=== PATIENT | female | born 1975 | race African-American/Black ===

== ENCOUNTER 2018-10-08 20:44 | Emergency (ER) | payer BC, OTHER ==
[2018-10-08 20:55] VITALS: TEMP 98; BMI 28.2
--- NOTE | 2018-10-08 21:55 | PDOC ---
History of Present Illness - General Chief Complaint: Pain Stated Complaint: PAIN,DIARRHEA Time Seen by Provider: 10/08/18 21:52 History Source: Patient Exam Limitations: No Limitations - History of Present Illness Initial Comments: 10/08/18 22:14 43 year old woman with no past medical history who presents with 10 episodes of nonbloody watery diarrhea since this AM and w/ stabbing 10/10 LUQ pain radiating to the L back since 1500 today. She took zantac for symptoms without relief. The symptoms are associated with some nausea, but denies dysuria, hematuria, fevers, headaches, recent illness, coughing, congestion. She denies any prior abdominal surgeries. She has no other complaints at bedside. No rashes noted. Past History - Past Medical History Allergies/Adverse Reactions: Allergies Allergy/AdvReac Type Severity Reaction Status Date / Time shellfish derived Allergy Severe Swelling Verified 10/08/18 20:56 COPD: No - Suicide/Smoking/Psychosocial Hx Smoking History: Never smoked Have you smoked in the past 12 months: No Information on smoking cessation initiated: No Hx Alcohol Use: Yes Drug/Substance Use Hx: Yes Review of Systems - Review of Systems Able to Perform ROS?: Yes Is the patient limited Iraqi proficient: No Constitutional: No: Chills, Diaphoresis, Fever HEENTM: No: Blurred Vision, Tinnitus Respiratory: No: Cough, Orthopnea, Shortness of Breath Cardiac (ROS): No: Chest Pain, Lightheadedness, Palpitations, Syncope ABD/GI: Yes: Diarrhea, Nausea. No: Constipated, Vomiting : No: Burning, Dysuria, Hematuria Musculoskeletal: Yes: See HPI, Back Pain Neurological: No: Headache, Numbness, Paresthesia, Tingling *Physical Exam - Vital Signs Last Vital Signs Temp Pulse Resp BP Pulse Ox 98.0 F 84 18 145/77 100 10/08/18 20:53 10/08/18 20:53 10/08/18 20:53 10/08/18 20:53 10/08/18 20:53 - Physical Exam Comments: 10/08/18 22:29 GENERAL: Awake, alert, and fully oriented, in no acute distress HEAD: No signs of trauma, normocephalic, atraumatic EYES: EOMI, sclera anicteric, conjunctiva clear ENT: oropharynx clear without exudates. Moist mucosa NECK: Normal ROM, supple LUNGS: No distress, speaks full sentences, clear to auscultation bilaterally HEART: Regular rate and rhythm, normal S1 and S2, no murmurs, rubs or gallops, peripheral pulses normal and equal bilaterally. ABDOMEN: Soft, + LUQ tenderness, normoactive bowel sounds. No guarding, no rebound. No masses BACK: L flank pain to palaption, L CVA tenderness EXTREMITIES : Normal inspection, Normal range of motion, no edema. No clubbing or cyanosis. NEUROLOGICAL: Cranial nerves II through XII grossly intact. Normal speech, no focal sensorimotor deficits SKIN: Warm, Dry, normal turgor, no rashes or lesions noted ED Treatment Course - LABORATORY CBC & Chemistry Diagram: 10/08/18 22:42 10/08/18 22:42 Medical Decision Making - Medical Decision Making 10/08/18 22:28 43 year old woman with no past medical history who presents with 10 episodes of nonbloody watery diarrhea since this AM and w/ stabbing 10/10 LUQ pain radiating to the L back since 1500 today. She took zantac for symptoms without relief. ED Course: consider gastroenteritis vs nephrolithiasis vs pyelonephritis vs uti r/o preg cbc, cmp, ua, upreg, ekg ivf, zofran, tylenol 10/08/18 23:28 cbc, cmp, within normal limits increased neutrophils % 10/09/18 00:24 ekg: normal sinus rhythm HR 70, no interval abnormalities, narrow QRS, ST and T wave segments and morphology normal. Patient with concerning presentation of symptoms order CTAP 10/09/18 01:58 CT abdomen pelvis - small nonobstructing R renal stone Will dose toradol for pain Patient will d/c with f.u w/ GI and PCP *DC/Admit/Observation/Transfer Diagnosis at time of Disposition: LUQ abdominal pain - Discharge Dispostion Disposition: HOME Condition at time of disposition: Fair Decision to Admit order: No - Referrals Referrals: Gen Julio [Primary Care Provider] - Ranjan Lopez DO [Staff Physician] - - Patient Instructions Printed Discharge Instructions: DI for Abdominal Pain-Adult Additional Instructions: You were seen in the ED for complaints of L sided abdominal pain. In the ED you were evaluated with labwork and imaging. Your results were largely unremarkable. There does not appear to be an acute need for immediate hospitalization. You are advised to follow up with your Primary Care Physician within 1 week. Take over the counter Tylenol and Motrin for pain management. Drink plenty of fluids. Introduce breads and broths slowly into the diet and eat more complex foods as tolerated. You are given a referral to gastroenterology and are advised to follow up within 1 week. Return to the ED immediately if you experience worsening abdominal pain, fever, blood in the stool, worsening diarrhea, blood in urine, chest pain, shortness of breath or loss of consciousness. - Post Discharge Activity Forms/Work/School Notes: Back to Work
[2018-10-08] MEDS ORDERED: ACETAMINOPHEN 1000 MG/100 ML VIAL (NON FORMULARY) IVPB ONE (22:24)
[2018-10-08] MEDS ORDERED: ONDANSETRON 4 MG/2 ML VIAL IVPUSH ONE (22:24)
[2018-10-08] MEDS ORDERED: SODIUM CHLORIDE 1,000 ML IV SCH (22:30)
[2018-10-08 22:49] LABS: BASO % 0.6 % (0-2.0); EOS % 0.4 % (0-4.5); HEMATOCRIT 32.9 % (32.4-45.2); HEMOGLOBIN 10.7 GM/dL (10.7-15.3); LYMPH % 9.1 % (8-40); MCH 24.5 pg (25.7-33.7); MCHC 32.6 g/dl (32.0-36.0); MEAN CELL VOLUME 75.3 fl (80-96); MEAN PLT VOLUME 8.9 fl (7.5-11.1); MONO % 4.4 % (3.8-10.2); NEUT % 85.5 % (42.8-82.8); PLATELET COUNT 255 K/MM3 (134-434); RBC 4.37 M/mm3 (3.60-5.2); RDW 19.4 % (11.6-15.6); WHITE BLOOD COUNT 7.1 K/mm3 (4.0-10.0)
[2018-10-08] MEDS ORDERED: ACETAMINOPHEN INJECTION 100 ML IVPB ONE (23:09)
[2018-10-08] MEDS ORDERED: ONDANSETRON 4 MG/2 ML VIAL ONE (23:09)
[2018-10-08 23:26] LABS: ALBUMIN 3.6 g/dl (3.4-5.0); ALK PHOS 94 U/L (45-117); ANION GAP 8 MMOL/L (8-16); BILIRUBIN,TOTAL 0.6 mg/dL (0.2-1); BLOOD UREA NITROGEN 11 mg/dL (7-18); CALCIUM 8.9 mg/dL (8.5-10.1); CHLORIDE 105 mmol/L (98-107); CO2 24 mmol/L (21-32); CREATININE 0.8 mg/dL (0.55-1.3); GLUCOSE,RANDOM 85 mg/dL (74-106); POTASSIUM 4.2 mmol/L (3.5-5.1); SGOT/AST 15 U/L (15-37); SGPT/ALT 19 U/L (13-61); SODIUM 137 mmol/L (136-145); TOT PROT 7.9 g/dl (6.4-8.2)
--- NOTE | 2018-10-08 23:50 | PDOC ---
Attending Attestation - [facility] HPI: 10/09/18 00:03 The patient is a 43 year old female, with no significant past medical history, who presents to the emergency department with, 10 episodes on non-bloody diarrhea and LUQ stabbing pain radiating to the left flank with associated nausea. She denies recent fevers, chills, headache or dizziness. She denies recent vomit or constipation. She denies recent dysuria, frequency, urgency or hematuria. She denies recent chest pain or shortness of breath. Allergies: Shellfish derived. Primary Care Physician: Dr. Julio - Physicial Exam PE: 10/09/18 00:03 GENERAL: Well developed, well nourished. Awake and alert. No acute distress. HEENT: Normocephalic, atraumatic. PERRLA, EOMI. No conjunctival pallor. Sclera are non- icteric. Moist mucous membranes. Oropharynx is clear. NECK: Supple. Full ROM. No JVD. Carotid pulses 2+ and symmetric, without bruits. No thyromegaly. No lymphadenopathy. CARDIOVASCULAR: Regular rate and rhythm. No murmurs, rubs, or gallops. Distal pulses are 2+ and symmetric. PULMONARY: No evidence of respiratory distress. Lungs clear to auscultation bilaterally. No wheezing, rales or rhonchi. ABDOMINAL: +LUQ and L CVA tenderness. Protuberant. Soft. Non-distended. No rebound or guarding. No organomegaly. Normoactive bowel sounds. MUSCULOSKELETAL Normal range of motion at all joints. No bony deformities or tenderness. No CVA tenderness. EXTREMITIES: No cyanosis. No clubbing. No edema. No calf tenderness. SKIN: Warm and dry. Normal capillary refill. No rashes. No jaundice. NEUROLOGICAL: Alert, awake, appropriate. Cranial nerves 2-12 intact. No deficits to light touch and temperature in face, upper extremities and lower extremities. No motor deficits in the in face, upper extremities and lower extremities. Normoreflexic in the upper and lower extremities. Normal speech. Gait is normal without ataxia. PSYCHIATRIC: Cooperative. Good eye contact. Appropriate mood and affect. - Medical Decision Making EXAM: CT abdomen and pelvis WITH CONTRAST* HISTORY: Abdominal pain COMPARISON: None. FINDINGS: Lung bases are clear. The visualized cardiac chambers are normal size and configuration. There is a tiny nonobstructing right renal stone. Normal liver, gallbladder, pancreas, spleen, adrenal glands and left kidney. The stomach and abdominal small and large bowel are normal. There is no aortic aneurysm. There is no significant retroperitoneal lymphadenopathy. The pelvic small and large bowel are normal. The appendix is normal. The uterus and adnexal structures are normal. Urinary bladder is unremarkable. There is no pelvic free fluid. No discrete pelvic lymphadenopathy is identified. IMPRESSION: No localizing signs for acute pathology. Tiny nonobstructing right renal stone. Read by: Farhat Gamino MD <Sergio Kim - Last Filed: 10/09/18 01:57> - Resident Resident Name: Radha Phelan - ED Attending Attestation I have performed the following: I have examined & evaluated the patient, The case was reviewed & discussed with the resident, I agree w/resident's findings & plan, Exceptions are as noted - Medical Decision Making 10/09/18 00:26 diff diag includes nephrolithiasis, pancreatitis,atypical pneumonia, pyelonephritis 10/09/18 02:16 The CAT scan did show tiny nonobstructing stone but it was in the right kidney and that is not where her pain is. Her CBC, chemistries and urine are unremarkable.Her pain has greatly improved Patient has a negative workup and will be discharged home <Basilia Bhat - Last Filed: 10/09/18 02:16> Attestations - Attestations 10/09/18 00:04 Documentation prepared by Sergio Kim, acting as biomedical engineering director for Basilia Bhat MD. <Sergio Kim - Last Filed: 10/09/18 01:57>
[2018-10-09 00:29] LABS: PH,URINE 6.5 (5.0-8.0); URINE APPEARANCE CLEAR; URINE BILIRUBIN NEGATIVE (NEGATIVE); URINE COLOR YELLOW; URINE GLUCOSE (UA) NEGATIVE (NEGATIVE); URINE KETONE TRACE (NEGATIVE); URINE LEUK ESTERASE NEGATIVE (NEGATIVE); URINE NITRITE NEGATIVE (NEGATIVE); URINE PROTEIN NEGATIVE (NEGATIVE); URINE UROBILINOGEN 0.2 mg/dL (0.2-1.0)
[2018-10-09 00:32] LABS: HCG,QUALITATIVE URINE Negative
[2018-10-09] MEDS ORDERED: KETOROLAC TROMETHAMINE 30 MG/1 ML VIAL IVPUSH ONE (01:58)
[2018-10-09] MEDS ORDERED: KETOROLAC TROMETHAMINE 30 MG/1 ML VIAL ONE (02:28)
[2018-10-09 02:46] VITALS: BP 119/69; PULSE 62
--- NOTE | 2018-10-09 09:19 | EKG ---
Test Reason : Blood Pressure : / mmHG Vent. Rate : 070 BPM Atrial Rate : 070 BPM P-R Int : 128 ms QRS Dur : 080 ms QT Int : 390 ms P-R-T Axes : 037 016 034 degrees QTc Int : 421 ms NORMAL SINUS RHYTHM NORMAL ECG NO PREVIOUS ECGS AVAILABLE Confirmed by SILVIA BENJAMIN MD ([id number]) on 10/09/2018 9:18:52 AM Referred By: Confirmed By:SILVIA BENJAMIN MD
== END 2018-10-09 02:48 | disposition home or self-care (01) ==
LOC: JER 20:44
PROC: 3E033NZ Introduction of Analgesics, Hypnotics, Sedatives into Peripheral Vein, Percutaneous Approach (ICD-10-PCS; principal; 2018-10-08)
PROC: 3E0333Z Introduction of Anti-inflammatory into Peripheral Vein, Percutaneous Approach (ICD-10-PCS; 2018-10-08)
PROC: 3E033GC Introduction of Other Therapeutic Substance into Peripheral Vein, Percutaneous Approach (ICD-10-PCS; 2018-10-08)
DX: R10.12 Left upper quadrant pain (principal)
CPT/HCPCS: 36415; 74177-TC; 80053; 81003; 84703; 85025; 93005; 93010; 96374; 96375; 99282-25; J0131; J7030